=== PATIENT | male | born 1935 | race Caucasian/White ===

== ENCOUNTER 2022-04-17 20:42 | Inpatient (IN) | payer MEDICARE, SELFPAY ==
[2022-04-17] VITALS (7 sets, daily range): BP systolic 104–135; BP diastolic 59–89; PULSE 61–78; RESP 19–24; TEMP 37; O2SAT 93–97; BMI 25.6
--- NOTE | ~2022-04-17 | XR_ITS ---
EXAMINATION: XR chest 1V portable DATE: 04/19/2022 11:06 INDICATION: Respiratory distress. Shortness of breath. TECHNIQUE: frontal view of the chest was obtained. COMPARISON: None FINDINGS: Opacities at the left lower lung zone and to lesser degree along the right lung base. No pneumothorax or definitive pleural effusion. Borderline heart size accounting for AP technique. Median sternotomy wires and mediastinal surgical clips are seen, likely from prior coronary artery bypass grafting. Du al lead pacemaker seen with leads projecting over the expected locations of the right atrium and righ t ventricle. IMPRESSION: 1. Opacities in the bilateral lower lung zones, left greater than right which could represent atelect asis, pneumonia, mild pulmonary edema or some combination thereof. 2. Borderline heart size. Reviewed, dictated and finalized at location A. IMPRESSION: 1. Opacities in the bilateral lower lung zones, left greater than right which c ould represent atelectasis, pneumonia, mild pulmonary edema or some combination thereof. 2. Borderline heart size.
--- NOTE | 2022-04-17 21:19 | ADMGEN ---
This patient, Jas Hanson, was admitted to Intensive Care Unit-5 at 2030. Patient/family oriented to hospital policies and general routines including ID bracelet, bed and alarms, visiting hours, pain management, procedures, bathroom and other care routines, personal items, smoking policy, room service/diet, and visiting hours. Information on how to activate the Rapid Response Team has been discussed. Patient/Family are encouraged to report perceived risks to care and to ask questions if they do not understand what they are told or what they should do.
--- NOTE | 2022-04-17 21:22 | PM.IMHP ---
H&P: HPI History of Present Illness Date/Time: 04/17/22 21:22 Chief Complaint: Generalized weakness Narrative: 87-year-old male with a past medical history of type 2 diabetes mellitus, coronary artery disease status post CABG, paroxysmal atrial fibrillation, pacemaker/defibrillator who presented to the ER at [facility] due to generalized weakness. Source of information from outside ER records and patient report. The patient is a relatively good historian. The patient reported that he just did not feel well when he woke up and went into his kitchen. He was given rate to take his medications but he felt so bad he decided check his blood pressure 1st. When checked his blood pressures at home his systolic pressures were in the 190s. His told him that he just did not look well. He reports he had no preceding symptoms prior to this. Given that his blood pressure was so elevated they called EMS the patient was brought into the hospital. Just prior to EMS arrival with her home patient did have 1 episode of emesis of clear material. He denied any abdominal pain, chest pain, palpitations or shortness of breath. He denies any history of congestive heart failure. When EMS arrived at the home patient's systolic blood pressures were in the 100s/60s he was pale and diaphoretic. He was initially in sinus rhythm on arrival to the ER. Was given 3 L in fluid bolus. Shortly thereafter was started on Levophed. It appears the patient remained on Levophed for a couple of hours. The patient flipped in AFib RVR. In the course of treatment of his AFib he was given 5 mg IV Lopressor x2 in a 20-30 minute interval and was given 1 dose of IV Cardizem 10 mg about an hour and a half later. Sometime in that interval the patient's Levophed was also discontinued. With improvement in the patient's heart rate the patient's blood pressures normalized. Patient was taken off of Levophed prior to transfer. At the time patient arrived to [facility] she used the patient's blood pressures when the 130 systolic and was in a paced rhythm. The patient has a cervical collar placed due to a C2 fracture from August. He is supposed to follow-up in the next few weeks about possibly getting the cervical collar removed. Labs at the outside facility: White count 14.1 hemoglobin 11.8 platelet count [id number] with 80% neutrophils Lactic acid was 1.8 with repeat of 1.4 Magnesium was 1.6 patient received 2 g magnesium sulfate rider Influenza and COVID PCR was negative UA was unremarkable Troponin was lower limit of normal CMP sodium 126 potassium 4.1 chloride 93 CO2 25 BUN 14 creatinine 1 AST ALT and alk-phos oral low bilirubin was 0.[address] of the abdomen pelvis with contrast demonstrated mucosal thickening of the distal descending colon and proximal sigmoid colon multiple adjacent diverticuli may be due to diverticulitis versus focal colitis, minimal adjacent fatty infiltration without abscess. Proximal colon has moderate amount of stool without obstruction. Contracted urinary bladder with Jose catheter in place mild mucosal thickening of the urinary bladder may be consistent with cystitis, slightly distended gallbladder without stones without evidence of inflammation fatty infiltration of the liver without masses small hiatal hernia and infrarenal abdominal aortic aneurysm 2.[address] of the chest with contrast mild advancement of COPD, median sternotomy, extensive coronary artery calcifications, pacemaker leads in place, mild mucosal thickening of the esophagus may be due to reflux CT of the brain: Moderate small-vessel ischemic changes consistent with patient's age, 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 Blood cultures were obtained at the outside facility. Patient was transferred to our facility in the setting o
[2022-04-17] MEDS: SODIUM CHLORIDE 0.9% IV 1,000 ML 100 ML IV CONT (23:40)
[2022-04-18] VITALS (15 sets, daily range): BP systolic 113–165; BP diastolic 53–91; PULSE 60–80; RESP 17–21; TEMP 36.5–37.3; O2SAT 94–98
[2022-04-18 04:06] LABS: Basophils Absolute Auto 0.1 K/mm3 (0.0-0.1); Basophils Percent Auto 0.5 % (0.2-1.2); Eosinophils Percent Auto 0.3 % (0-4.4); Hematocrit 28.7 % (42.0-52.0); Hemoglobin 9.6 g/dL (14.0-18.0); Immature Granulocyte Absolute 0.04 K/mm3 (0.00-0.031); Immature Granulocyte Percent A 0.3 % (0-0.5); Lymphocytes Absolute Auto 1.75 K/mm3 (0.9-3.2); Lymphocytes Percent Auto 13.6 % (18.3-44.2); Mean Corpuscular HGB Conc 33.4 g/dl (32-36); Mean Corpuscular Hemoglobin 29.3 pg (26-34); Mean Corpuscular Volume 87.5 fl (80-100); Mean Platelet Volume 8.4 fl (7.4-10.4); Monocytes Absolute Auto 1.4 K/mm3 (0.1-0.6); Neutrophils Absolute Auto 9.6 K/mm3 (1.3-6.7); Neutrophils Percent Auto 74.3 % (45.5-73.1); Platelet Count Result 209 k/mm3 (150-375); Red Blood Count 3.28 M/mm3 (4.6-6.20); Red Cell Distribution Width 13.9 % (11.5-14.5); White Blood Count 12.9 K/mm3 (4.5-10.0)
[2022-04-18 04:31] LABS: Alanine Aminotransferase 8 U/L (6-50); Albumin Level 3.3 g/dL (3.5-5.1); Alkaline Phosphatase 33 U/L (38-126); Anion Gap 4 mmol/L (8-16); Aspartate Amino Transferase 19 U/L (17-59); Bilirubin,Total 0.5 mg/dL (0.2-1.3); Blood Urea Nitrogen 14 mg/dL (9-20); Calcium 8.2 mg/dL (8.4-10.2); Carbon Dioxide 25 mmol/L (22-30); Chloride 96 mmol/L (98-107); Estimated CRCL calculation 47 ml/min; Estimated Glomerular Filt Rate > 60; Glucose 123 mg/dL (65-110); Sodium 125 mmol/L (137-145)
[2022-04-18 04:36] LABS: Troponin I 0.147 ng/mL (0.000-0.034)
[2022-04-18 08:03] LABS: Glucose Point of Care 126 mg/dl (65-105)
[2022-04-18] MEDS: ENOXAPARIN 40 MG/0.4 ML SYRINGE SUB-Q (08:41)
[2022-04-18] MEDS: DOCUSATE SODIUM 100 MG CAPSULE PO ×2 (08:42→17:54)
[2022-04-18] MEDS: ASCORBIC ACID 500 MG TABLET 1000 MG PO (08:42)
[2022-04-18] MEDS: CHOLECALCIFEROL 1,000 UNITS TABLET 5000 UNITS PO (08:42)
[2022-04-18] MEDS: LORATADINE 10 MG TABLET PO (08:42)
[2022-04-18] MEDS: ISOSORBIDE MONONITRATE 30 MG TAB.ER.24H PO (08:43)
[2022-04-18] MEDS: SERTRALINE HCL 50 MG TABLET PO (08:43)
[2022-04-18] MEDS: CLOPIDOGREL BISULFATE 75 MG TABLET PO (08:43)
[2022-04-18] MEDS: CALCIUM CARBONATE (OSCAL) 500 MG TABLET PO (08:43)
[2022-04-18] MEDS: metFORMIN HCL XR 500 MG TAB.SR.24H PO ×2 (08:43→17:56)
[2022-04-18] MEDS: FINASTERIDE 5 MG TABLET PO (08:43)
[2022-04-18] MEDS: carvediloL 6.25 MG TABLET PO ×2 (08:43→19:54)
[2022-04-18] MEDS: FAMOTIDINE 20 MG TABLET PO ×2 (08:43→17:55)
[2022-04-18] MEDS: FLUTICASONE PROPIONATE 0.05% NA SPR 16 GM BTL (*BKC) 1 SPRAY NASAL (09:06)
--- NOTE | 2022-04-18 09:25 | PM.IMPN ---
Progress Note: A&P Assessment and Plan (1) Sepsis with hypotension: Code(s): A41.9 - Sepsis, unspecified organism; I95.9 - Hypotension, unspecified Status: Acute Assessment and Plan: Patient was found to be hypotensive at the outside hospital. He was on Levophed for few hours prior to transfer. His blood pressure did improve with IV fluids and controlling the heart rate. He was taken off Levophed prior to transfer. Patient's blood pressures been stable here. He did meet sepsis criteria on his original presentation. Etiology related to the diverticulitis. Sepsis symptoms resolving. Continue IV antibiotics. (2) Diverticulitis: Code(s): K57.92 - Diverticulitis of intestine, part unspecified, without perforation or abscess without bleeding Status: Acute Assessment and Plan: CT scan at the outside hospital shows mucosal thickening of the distal descending colon proximal sigmoid colon which may related to diverticulitis versus focal colitis. No abscess. No suggestion of pneumonia by the CT of the chest. Clinically patient is much improved. Continue IV antibiotics. (3) Elevated troponin: Code(s): R77.8 - Other specified abnormalities of plasma proteins Status: Acute Assessment and Plan: Troponin was lower limits of normal prior to admission. Troponin here 0.15. On repeat it is trending downward. Elevated troponin more likely related to his elevated heart rate and/or a hypotension. Will repeat EKG. Check echocardiogram. (4) Paroxysmal atrial fibrillation: Code(s): I48.0 - Paroxysmal atrial fibrillation Status: Acute Assessment and Plan: Patient has converted back to normal sinus rhythm. Continue Coreg. Continue tele. [id number] at least 6. Not on anticoagulation on admission felt related to his unsteady gait. Continue telemetry. Continue Coreg. (5) Anemia: Code(s): D64.9 - Anemia, unspecified Status: Acute Assessment and Plan: Hemoglobin 11.8 on admission at the outside hospital but has dropped to 9.6 today. No evidence acute blood loss. Probably related IV fluids. Will continue to follow. (6) Hyponatremia: Code(s): E87.1 - Hypo-osmolality and hyponatremia Status: Acute Assessment and Plan: Sodium was 126 at the outside hospital. This may be chronic for him. Sodium about the same today. Check urine studies. Check TSH and cortisol. Continue to follow. (7) Type 2 diabetes mellitus: Code(s): E11.9 - Type 2 diabetes mellitus without complications Status: Acute Assessment and Plan: The patient's blood glucose was reviewed on 04/18 Glucose remains well controlled. Continue AccuCheks covering with sliding scale. Hypoglycemia protocol available as needed. Continue current medications. (8) C2 cervical fracture: Onset Date: 08/2021 Code(s): S12.100A - Unspecified displaced fracture of second cervical vertebra, initial encounter for closed fracture Status: Acute Assessment and Plan: Patient has a history of C2 fracture in August of this year and currently wearing a cervical collar. This was to follow-up in the next few weeks with Neurosurgery about possibly getting the cervical collar removed. Start PT and OT. (9) Hypomagnesemia: Code(s): E83.42 - Hypomagnesemia Status: Acute Assessment and Plan: The patient received 2 g magnesium sulfate rider at the outside facility. Repeat magnesium level normal now. Continue to follow Plan Patient has been admitted inpatient status. Patient will require greater than 2 midnight hospital stay form evaluation and stabilization of multiple medical problems. Subjective Date/time seen: 04/18/22 09:25 Interval history: 87yo male with DM, CAD, pAFib and PM/defibrillator was transfer from outside hospital for diverticulitis and sepsis with hypotension. Patient feeling better toda
[2022-04-18 10:34] LABS: Troponin I 0.131 ng/mL (0.000-0.034)
[2022-04-18] MEDS: SODIUM CHLORIDE 0.9% IV 1,000 ML 70 ML IV CONT (10:39)
[2022-04-18 11:38] LABS: Creatinine Urine 108.4 mg/dL
[2022-04-18 11:43] LABS: Sodium Urine Random 91 meq/L
[2022-04-18 12:24] LABS: Glucose Point of Care 129 mg/dl (65-105)
[2022-04-18] MEDS: FLUTICASONE/UMECLIDIN/VILANTER 100-62.5-25 MCG ELLIPTA 1 PUFF INHALATION (16:52)
[2022-04-18 17:43] LABS: Glucose Point of Care 92 mg/dl (65-105)
[2022-04-18 19:39] LABS: Sodium 127 mmol/L (137-145)
[2022-04-18] MEDS: ACETAMINOPHEN 325 MG TABLET 650 MG PO (19:52)
[2022-04-18] MEDS: TAMSULOSIN HCL 0.4 MG CAPSULE PO (19:54)
[2022-04-18 19:59] LABS: Glucose Point of Care 136 mg/dl (65-105)
[2022-04-19] VITALS (16 sets, daily range): BP systolic 140–196; BP diastolic 71–96; PULSE 60–84; RESP 18–26; TEMP 36.3–36.8; O2SAT 85–99
--- NOTE | 2022-04-19 | ECHO_ITS ---
Patient Info Name: Jas Hanson Age: 87 years : 1935 Gender: Male Ht: 64 in Wt: 146 lbs BSA: 1.74 m2 HR: 65 bpm BP: 196 / 92 mmHg Exam Date: 04/19/2022 9:19 AM Exam Location: [facility] Patient Status: Inpatient Admit Date: 04/17/2022 Staff Ordering Physician: Yang Teran MD Inseam Trimmer: Sunil Rapp RDCS Attending Provider: Merissa Reddy DO Exam Type: CA echo doppler color flow Study Info Indications - elevated troponin Complete two-dimensional, color flow and Doppler transthoracic echocardiogram is performed. Summary 1. Complete two-dimensional, color flow and Doppler transthoracic echocardiogram is performed. 2. Borderline LV enlargement, mild LVH, normal LV systolic function, ejection fraction 65-70%, normal diastolic function. Linear artifact is seen in the right atrium and right ventricle. Mild mitral annular calcification, mild MR. Aortic valve is not well visualized, appears moderately calcified; maximum velocity 1.98 m/sec, mean gradient 9 mmHg. Trace TR, unable to assess RVSP due to inadequate TR jet. Consider further evaluation of aortic valve anatomy clinically appropriate. Left Ventricle Left ventricular chamber dimension is normal. Left ventricular systolic function is normal, estimated at 65-70%. There is mildly increased left ventricular wall thickness. The left ventricular diastolic function is normal. Right Ventricle Right ventricular chamber dimension is normal. Right ventricular systolic function is normal. Left Atria Left atrial chamber dimension is moderately enlarged. Right Atria Right atrial chamber dimension is normal. Linear artifact in the right atrium suggestive of catheter(s), pacemaker lead(s), or ICD lead(s). Aortic Valve The aortic valve is not well visualized. There is mild aortic valve stenosis with a peak velocity of 198 cm/s, mean gradient of 9 mmHg, and aortic valve area of 2.6 cm2. There is mild aortic valve regurgitation. There is moderate aortic valve calcification. Pulmonic Valve The pulmonic valve is not well visualized. Mitral Valve The mitral valve has normal leaflets. There is mild mitral valve regurgitation. There is mild mitral valve calcification. Tricuspid Valve The tricuspid valve leaflets are normal. There is trace tricuspid valve regurgitation. Inferior Vena Cava Dilated inferior vena cava with no collapse upon inspiration consistent with elevated right atrial pressure, 15 mmHg. Aorta The aortic root size at the sinus of Valsalva is not well visualized. Left Ventricular Outflow Tract Name Value Normal LVOT 2D LVOT Diameter 2.0 cm LVOT Doppler LVOT Peak Gradient 8 mmHg LVOT Mean Gradient 6 mmHg LVOT VTI 34 cm LVOT VTI/AV VTI Ratio 0.8 LVOT Stroke Volume 111 ml LVOT CO 7.3 l/min LVOT CI 4.2 l/min/m2 Mitral Valve Name
[2022-04-19] MEDS: SODIUM CHLORIDE 0.9% IV 1,000 ML 70 ML IV CONT (00:15)
[2022-04-19 04:31] LABS: Basophils Absolute Auto 0.1 K/mm3 (0.0-0.1); Basophils Percent Auto 0.5 % (0.2-1.2); Eosinophils Absolute Auto 0.2 K/mm3 (0-0.3); Eosinophils Percent Auto 2.4 % (0-4.4); Hematocrit 31.6 % (42.0-52.0); Hemoglobin 10.2 g/dL (14.0-18.0); Immature Granulocyte Absolute 0.04 K/mm3 (0.00-0.031); Immature Granulocyte Percent A 0.4 % (0-0.5); Lymphocytes Absolute Auto 1.87 K/mm3 (0.9-3.2); Lymphocytes Percent Auto 19.4 % (18.3-44.2); Mean Corpuscular HGB Conc 32.3 g/dl (32-36); Mean Corpuscular Volume 89.8 fl (80-100); Mean Platelet Volume 8.5 fl (7.4-10.4); Monocytes Absolute Auto 0.9 K/mm3 (0.1-0.6); Monocytes Percent Auto 9.5 % (2.6-8.5); Neutrophils Absolute Auto 6.5 K/mm3 (1.3-6.7); Neutrophils Percent Auto 67.8 % (45.5-73.1); Platelet Count Result 216 k/mm3 (150-375); Red Blood Count 3.52 M/mm3 (4.6-6.20); Red Cell Distribution Width 14.2 % (11.5-14.5); White Blood Count 9.7 K/mm3 (4.5-10.0)
[2022-04-19 04:41] LABS: Albumin Level 3.6 g/dL (3.5-5.1); Anion Gap 11 mmol/L (8-16); Blood Urea Nitrogen 10 mg/dL (9-20); Calcium 7.7 mg/dL (8.4-10.2); Carbon Dioxide 26 mmol/L (22-30); Chloride 92 mmol/L (98-107); Estimated CRCL calculation 54 ml/min; Estimated Glomerular Filt Rate > 60; Glucose 110 mg/dL (65-110); Magnesium 1.7 mg/dL (1.6-2.3); Phosphorus 2.6 mg/dL (2.5-4.5); Sodium 129 mmol/L (137-145)
[2022-04-19 04:43] LABS: Hemoglobin A1C 6.2 % (<5.7)
[2022-04-19 06:48] LABS: Free T4 Free Thyroxine Reflex 1.23 ng/dL (0.78-2.19)
--- NOTE | 2022-04-19 08:00 | ECG_ITS ---
Measurements Intervals [place] Rate: 71 P: 118 AK: 152 QRS: 46 QRSD: 104 T: 147 QT: 362 QTc: 394 Interpretive Statements ELECTRONIC ATRIAL PACEMAKER FREQUENT ATRIAL PREMATURE COMPLEXES BORDERLINE ST-T WAVE ABNORMALITY- DIFFUSE LEADS BASELINE ARTIFACT- II, III, AVR, AVL, AVF, V1-V6 BORDERLINE ECG NO PREVIOUS ECG AVAILABLE FOR COMPARISON Electronically Signed On 04-19-2022 11:23:44 CDT by Loy Saezn D.O.
[2022-04-19] MEDS: FLUTICASONE/UMECLIDIN/VILANTER 100-62.5-25 MCG ELLIPTA 1 PUFF INHALATION (08:39)
[2022-04-19] MEDS: ASCORBIC ACID 500 MG TABLET 1000 MG PO (09:02)
[2022-04-19] MEDS: CALCIUM CARBONATE (OSCAL) 500 MG TABLET PO (09:02)
[2022-04-19] MEDS: carvediloL 6.25 MG TABLET PO ×2 (09:02→20:20)
[2022-04-19] MEDS: metFORMIN HCL XR 500 MG TAB.SR.24H PO ×2 (09:03→17:09)
[2022-04-19] MEDS: FAMOTIDINE 20 MG TABLET PO ×2 (09:03→17:08)
[2022-04-19] MEDS: LORATADINE 10 MG TABLET PO (09:03)
[2022-04-19] MEDS: CLOPIDOGREL BISULFATE 75 MG TABLET PO (09:03)
[2022-04-19] MEDS: CHOLECALCIFEROL 1,000 UNITS TABLET 5000 UNITS PO (09:03)
[2022-04-19] MEDS: SERTRALINE HCL 50 MG TABLET PO (09:03)
[2022-04-19] MEDS: DOCUSATE SODIUM 100 MG CAPSULE PO ×2 (09:03→17:08)
[2022-04-19] MEDS: FINASTERIDE 5 MG TABLET PO (09:03)
[2022-04-19] MEDS: ENOXAPARIN 40 MG/0.4 ML SYRINGE SUB-Q (09:03)
[2022-04-19] MEDS: ISOSORBIDE MONONITRATE 30 MG TAB.ER.24H PO (09:03)
[2022-04-19] MEDS: FLUTICASONE PROPIONATE 0.05% NA SPR 16 GM BTL (*BKC) 1 SPRAY NASAL (09:04)
--- NOTE | 2022-04-19 09:21 | PCOTNOTE ---
Attempted OT evaluation. Patient getting an echo at this time. Will continue to attempt.
[2022-04-19 09:51] LABS: Glucose Point of Care 112 mg/dl (65-105)
[2022-04-19 12:57] LABS: Glucose Point of Care 141 mg/dl (65-105)
[2022-04-19] MEDS: FUROSEMIDE INJ 40 MG/4 ML VIAL 20 MG IV PUSH (13:19)
--- NOTE | 2022-04-19 14:00 | PM.IMPN ---
Progress Note: A&P Assessment and Plan (1) Sepsis with hypotension: Code(s): A41.9 - Sepsis, unspecified organism; I95.9 - Hypotension, unspecified Status: Acute Assessment and Plan: Patient was found to be hypotensive at the outside hospital. He was on Levophed for few hours prior to transfer. His blood pressure did improve with IV fluids and controlling the heart rate. He was taken off Levophed prior to transfer. Patient's blood pressures have been stable here. He did meet sepsis criteria with HoTN on his original presentation. Etiology related to the diverticulitis. Sepsis symptoms resolving. Continue IV antibiotics. Call OSH for culture results. The increasing SOB so CXR ordered showing bilateral LL opacities. Possibly from pulmonary edema related to IV fluid resuscitation. lasix 20mg IV x1 (he is lasix naive). Wean o2 as toelrated. (2) Diverticulitis: Code(s): K57.92 - Diverticulitis of intestine, part unspecified, without perforation or abscess without bleeding Status: Acute Assessment and Plan: CT scan at the outside hospital shows mucosal thickening of the distal descending colon proximal sigmoid colon which may related to diverticulitis versus focal colitis. No abscess. No suggestion of pneumonia by the CT of the chest. Clinically patient is much improved. Continue IV antibiotics. Remove Jose. Possibly discharge tomorrow if he continues to improve. (3) Elevated troponin: Code(s): R77.8 - Other specified abnormalities of plasma proteins Status: Acute Assessment and Plan: Troponin was lower limits of normal prior to admission. Troponin here 0.15. On repeat it is trending downward. Elevated troponin more likely related to his elevated heart rate and/or a hypotension. Repeat EKG noted. Echo showing EF 65-70% with normal diastolic dysfunction. (4) Paroxysmal atrial fibrillation: Code(s): I48.0 - Paroxysmal atrial fibrillation Status: Acute Assessment and Plan: Patient has converted back to normal sinus rhythm. Continue Coreg. Continue tele. [id number] at least 6. Not on anticoagulation on admission felt related to his unsteady gait. Continue telemetry. Continue Coreg. (5) Anemia: Code(s): D64.9 - Anemia, unspecified Status: Acute Assessment and Plan: Hemoglobin 11.8 on admission at the outside hospital but dropped to 9.6. No evidence acute blood loss. Probably related IV fluids. Repeat Hgb 10.2 today. Will continue to follow. (6) Hyponatremia: Code(s): E87.1 - Hypo-osmolality and hyponatremia Status: Acute Assessment and Plan: Sodium was 126 at the outside hospital. This may be chronic for him. Urine Sodium 91. TSH and Cortisol normal. Fluid restriction started. Sodium better today at 129 about the same today. Continue to follow. (7) Type 2 diabetes mellitus: Code(s): E11.9 - Type 2 diabetes mellitus without complications Status: Acute Assessment and Plan: A1c 6.2. The patient's blood glucose was reviewed on 04/19 Glucose remains well controlled. Continue AccuCheks covering with sliding scale. Hypoglycemia protocol available as needed. Continue current medications. (8) C2 cervical fracture: Onset Date: 08/2021 Code(s): S12.100A - Unspecified displaced fracture of second cervical vertebra, initial encounter for closed fracture Status: Acute Assessment and Plan: Patient has a history of C2 fracture in August of this year and currently wearing a cervical collar. This was to follow-up in the next few weeks with Neurosurgery about possibly getting the cervical collar removed. He is doing well with PT and OT. (9) Hypomagnesemia: Code(s): E83.42 - Hypomagnesemia Status: Acute Assessment and Plan: The patient received 2 g magnesium sulfate rider at the outside facility. Repeat magnesium level normal now. Continue
[2022-04-19] MEDS: ACETAMINOPHEN 325 MG TABLET 650 MG PO ×2 (14:42→20:46)
[2022-04-19] MEDS: polyethylene glycoL 3350 17 GM POWD.PACK PO (17:07)
[2022-04-19 17:28] LABS: Glucose Point of Care 110 mg/dl (65-105)
--- NOTE | 2022-04-19 18:40 | PC.NURSE ---
This patient, Jas Hanson, was transferred to [[id number]] on 04/19/22 at 1840. Personal belongings sent with patient. Report given to [Suzie GATES]. Appropriate documentation sent with patient.
[2022-04-19] MEDS: TAMSULOSIN HCL 0.4 MG CAPSULE PO (20:20)
[2022-04-19 20:50] LABS: Glucose Point of Care 121 mg/dl (65-105)
[2022-04-20] VITALS (7 sets, daily range): BP systolic 146–158; BP diastolic 57–72; PULSE 60–83; RESP 20; TEMP 36.6; O2SAT 97–98
[2022-04-20 06:30] LABS: Anion Gap 13 mmol/L (8-16); Blood Urea Nitrogen 7 mg/dL (9-20); Calcium 8.1 mg/dL (8.4-10.2); Carbon Dioxide 27 mmol/L (22-30); Chloride 90 mmol/L (98-107); Estimated CRCL calculation 47 ml/min; Estimated Glomerular Filt Rate > 60; Glucose 110 mg/dL (65-110); Magnesium 1.7 mg/dL (1.6-2.3); Potassium 3.2 mmol/L (3.4-5.0); Sodium 130 mmol/L (137-145)
[2022-04-20] MEDS: ENOXAPARIN 40 MG/0.4 ML SYRINGE SUB-Q (08:45)
[2022-04-20] MEDS: FLUTICASONE PROPIONATE 0.05% NA SPR 16 GM BTL (*BKC) 1 SPRAY NASAL (08:45)
[2022-04-20] MEDS: CHOLECALCIFEROL 1,000 UNITS TABLET 5000 UNITS PO (08:46)
[2022-04-20] MEDS: ASCORBIC ACID 500 MG TABLET 1000 MG PO (08:46)
[2022-04-20] MEDS: CLOPIDOGREL BISULFATE 75 MG TABLET PO (08:46)
[2022-04-20] MEDS: metFORMIN HCL XR 500 MG TAB.SR.24H PO (08:46)
[2022-04-20] MEDS: DOCUSATE SODIUM 100 MG CAPSULE PO (08:46)
[2022-04-20] MEDS: carvediloL 6.25 MG TABLET PO (08:47)
[2022-04-20] MEDS: FAMOTIDINE 20 MG TABLET PO (08:47)
[2022-04-20] MEDS: FINASTERIDE 5 MG TABLET PO (08:48)
[2022-04-20] MEDS: ISOSORBIDE MONONITRATE 30 MG TAB.ER.24H PO (08:48)
[2022-04-20] MEDS: LORATADINE 10 MG TABLET PO (08:48)
[2022-04-20] MEDS: CALCIUM CARBONATE (OSCAL) 500 MG TABLET PO (08:48)
[2022-04-20] MEDS: SERTRALINE HCL 50 MG TABLET PO (08:48)
[2022-04-20 08:49] LABS: Glucose Point of Care 100 mg/dl (65-105)
[2022-04-20] MEDS: FLUTICASONE/UMECLIDIN/VILANTER 100-62.5-25 MCG ELLIPTA 1 PUFF INHALATION (09:24)
--- NOTE | 2022-04-20 10:43 | PM.DS ---
DS: Admitting Diagnosis Discharge Date 04/20/2022 Admitting Diagnosis Generalized weakness DS: Discharge Diagnosis Discharge Diagnosis (1) Sepsis with hypotension: Code(s): A41.9 - Sepsis, unspecified organism; I95.9 - Hypotension, unspecified Status: Acute (2) Diverticulitis: Code(s): K57.92 - Diverticulitis of intestine, part unspecified, without perforation or abscess without bleeding Status: Acute (3) Elevated troponin: Code(s): R77.8 - Other specified abnormalities of plasma proteins Status: Acute (4) Paroxysmal atrial fibrillation: Code(s): I48.0 - Paroxysmal atrial fibrillation Status: Acute (5) Anemia: Code(s): D64.9 - Anemia, unspecified Status: Acute (6) Hyponatremia: Code(s): E87.1 - Hypo-osmolality and hyponatremia Status: Acute (7) Type 2 diabetes mellitus: Code(s): E11.9 - Type 2 diabetes mellitus without complications Status: Acute (8) C2 cervical fracture: Onset Date: 08/2021 Code(s): S12.100A - Unspecified displaced fracture of second cervical vertebra, initial encounter for closed fracture Status: Acute (9) Hypomagnesemia: Code(s): E83.42 - Hypomagnesemia Status: Acute DS: Summary Hospital Course Hospital Course: 87-year-old male with a past medical history of type 2 diabetes mellitus, coronary artery disease status post CABG, paroxysmal atrial fibrillation, pacemaker/defibrillator who presented to the ER at [facility] due to generalized weakness.? Source of information from outside ER records and patient report.? The patient is a relatively good historian.? The patient reported that he just did not feel well when he woke up and went into his kitchen.? He was given rate to take his medications but he felt so bad he decided check his blood pressure 1st.? When checked his blood pressures at home his systolic pressures were in the 190s.? His told him that he just did not look well.? He reports he had no preceding symptoms prior to this.? Given that his blood pressure was so elevated they called EMS the patient was brought into the hospital.? Just prior to EMS arrival with her home patient did have 1 episode of emesis of clear material.? He denied any abdominal pain, chest pain, palpitations or shortness of breath.? He denies any history of congestive heart failure.? When EMS arrived at the home patient's systolic blood pressures were in the 100s/60s he was pale and diaphoretic.? He was initially in sinus rhythm on arrival to the ER.? Was given 3 L in fluid bolus.? Shortly thereafter was started on Levophed.? It appears the patient remained on Levophed for a couple of hours.? The patient flipped in AFib RVR.? In the course of treatment of his AFib he was given 5 mg IV Lopressor x2 in a 20-30 minute interval and was given 1 dose of IV Cardizem 10 mg about an hour and a half later.? Sometime in that interval the patient's Levophed was also discontinued.? With improvement in the patient's heart rate the patient's blood pressures normalized.? Patient was taken off of Levophed prior to transfer.? At the time patient arrived to [facility] she used the patient's blood pressures when the 130 systolic and was in a paced rhythm.? The patient has a cervical collar placed due to a C2 fracture from August.? He is supposed to follow-up in the next few weeks about possibly getting the cervical collar removed. Labs at the outside facility: White count 14.1 hemoglobin 11.8 platelet count [id number] with 80% neutrophils Lactic acid was 1.8 with repeat of 1.4 Magnesium was 1.6 patient received 2 g magnesium sulfate rider Influenza and COVID PCR was negative UA was unremarkable Troponin was lower limit of normal CMP sodium 126 potassium 4.1 chloride 93 CO2 25 BUN 14 creatinine 1 AST ALT and alk-phos oral low bilirubin was 0.[address] of the abdomen pelvis with contrast demonstrated mucosal thickening of the dist
[2022-04-20] MEDS: POTASSIUM CHLORIDE 20 MEQ TABLET 40 MEQ PO (10:45)
[2022-04-20 12:23] LABS: Glucose Point of Care 100 mg/dl (65-105)
--- NOTE | 2022-04-20 13:27 | PC.NURSE ---
On 04/20/22, the student, [Jael Matthews], provided care and completed [email or web address] documentation on this patient. I have reviewed the student's documentation and agree with the findings.
== END 2022-04-20 15:05 | disposition home or self-care (01) | DRG 392 ==
LOC: ANHICU 04-19 11:43 → ANH2MED 04-19 18:33
PROVIDERS: Internal Medicine; Student in an Organized Health Care Education/Training Program; Admitting Provider Internal Medicine; Visit Provider Internal Medicine
DX: K57.32 Diverticulitis of large intestine without perforation or abscess without bleeding (principal); E87.1 Hypo-osmolality and hyponatremia; J81.1 Chronic pulmonary edema; D64.9 Anemia, unspecified; E11.9 Type 2 diabetes mellitus without complications; E55.9 Vitamin D deficiency, unspecified; E78.5 Hyperlipidemia, unspecified; F32.A Depression, unspecified; I48.0 Paroxysmal atrial fibrillation; I25.10 Atherosclerotic heart disease of native coronary artery without angina pectoris; J44.9 Chronic obstructive pulmonary disease, unspecified; J30.9 Allergic rhinitis, unspecified; K21.9 Gastro-esophageal reflux disease without esophagitis; N40.0 Benign prostatic hyperplasia without lower urinary tract symptoms; R77.8 Other specified abnormalities of plasma proteins; R26.9 Unspecified abnormalities of gait and mobility; S12.100D Unspecified displaced fracture of second cervical vertebra, subsequent encounter for fracture with routine healing; X58.XXXD Exposure to other specified factors, subsequent encounter; Z95.5 Presence of coronary angioplasty implant and graft; Z86.73 Personal history of transient ischemic attack (TIA), and cerebral infarction without residual deficits; Z95.1 Presence of aortocoronary bypass graft; Z95.810 Presence of automatic (implantable) cardiac defibrillator; Z98.41 Cataract extraction status, right eye; Z98.42 Cataract extraction status, left eye; Z96.1 Presence of intraocular lens; Z87.891 Personal history of nicotine dependence; Z79.02 Long term (current) use of antithrombotics/antiplatelets; Z79.84 Long term (current) use of oral hypoglycemic drugs; Z91.81 History of falling
CPT/HCPCS: 36415; 71045; 80048; 80053; 80069; 82533; 82570; 82948; 83036; 83735; 84295; 84300; 84439; 84443; 84480; 84484; 85025; 93005; 93306; 94640; 96361; 96365; 96366; 96372; 97161; 97165; A9270; G0378; J1650; J1940; J2543; J7030

== ENCOUNTER 2023-05-31 18:42 | Emergency (ER) | payer MEDICARE, SELFPAY ==
--- NOTE | ~2023-05-31 | CT_ITS ---
CT of the Abdomen and Pelvis: Indication: Rectal bleeding, anemia Technique: 2.5 mm axial scans were obtained through the abdomen and pelvis following intravenous adm inistration of 100 cc of Omnipaque 350. Dose reduction technique was used on this scan by utilizing a utomated exposure control and iterative reconstruction technique. The dose-length product (DLP) was 2 09.89 mGy-cm. Findings: Scans through the lung bases demonstrate bibasilar chronic interstitial disease. The liver, spleen, pancreas, gallbladder, adrenals and kidneys are within normal limits. There are ex tensive atherosclerotic calcifications of the aorta. There is a probable type B dissection involving the infrarenal abdominal aorta. No lymphadenopathy. No bowel obstruction or bowel wall thickening. There is no evidence to suggest acute appendicitis. Images through the pelvis were performed. Urinary bladder unremarkable. No pelvic mass seen. Small fa t-containing left inguinal hernia noted. No ascites. 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 No etiology for hemorrhage/anemia clearly identified. Reviewed, dictated and finalized at [facility]. 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 No etiology for hemorrhage/anemia clearly identified.
[2023-05-31 19:00] VITALS: BP 137/92; PULSE 79; RESP 18; TEMP 36.6; O2SAT 98
[2023-05-31 22:37] VITALS: BP 170/74; PULSE 76; RESP 15; O2SAT 100
[2023-06-01] VITALS (21 sets, daily range): BP systolic 155–181; BP diastolic 64–98; PULSE 62–88; RESP 15–16; TEMP 36.4; O2SAT 92–100
[2023-06-01 00:24] LABS: Alanine Aminotransferase 11 U/L (6-50); Alkaline Phosphatase 31 U/L (38-126); Anion Gap 6 mmol/L (8-16); Aspartate Amino Transferase 22 U/L (17-59); Bilirubin,Total 0.4 mg/dL (0.2-1.3); Blood Urea Nitrogen 13 mg/dL (9-20); Calcium 8.7 mg/dL (8.4-10.2); Carbon Dioxide 26 mmol/L (22-30); Chloride 97 mmol/L (98-107); Estimated Glomerular Filt Rate > 60; Glucose 100 mg/dL (65-110); Potassium 4.2 mmol/L (3.4-5.0); Sodium 129 mmol/L (137-145)
[2023-06-01 00:29] LABS: Basophils Absolute Auto 0.1 K/mm3 (0.0-0.1); Basophils Percent Auto 0.9 % (0.2-1.2); Eosinophils Absolute Auto 0.2 K/mm3 (0-0.3); Hematocrit 23.1 % (42.0-52.0); Immature Granulocyte Absolute 0.02 K/mm3 (0.00-0.031); Immature Granulocyte Percent A 0.3 % (0-0.5); Lymphocytes Absolute Auto 2.23 K/mm3 (0.9-3.2); Lymphocytes Percent Auto 28.1 % (18.3-44.2); Mean Corpuscular HGB Conc 28.1 g/dl (32-36); Mean Corpuscular Hemoglobin 21.5 pg (26-34); Mean Corpuscular Volume 76.2 fl (80-100); Mean Platelet Volume 8.9 fl (7.4-10.4); Monocytes Absolute Auto 0.8 K/mm3 (0.1-0.6); Monocytes Percent Auto 9.7 % (2.6-8.5); Neutrophils Absolute Auto 4.6 K/mm3 (1.3-6.7); Platelet Count Result 255 k/mm3 (150-375); Red Blood Count 3.03 M/mm3 (4.6-6.20); Red Cell Distribution Width 18.1 % (11.5-14.5)
[2023-06-01 00:32] LABS: Hemoglobin 6.5 g/dL (14.0-18.0); INR 2.2; Partial Thromboplastin Time 37.9 SECONDS (22.3-36.8); Prothrombin Time 26.5 Seconds (11.1-14.7)
[2023-06-01 01:00] LABS: Hypochromasia 1+ (NORMAL); Platelet Estimate Adequate (Adequate); Schistocytes None Seen (NORMAL)
[2023-06-01 02:31] LABS: Hematocrit 22.5 % (42.0-52.0)
[2023-06-01 02:39] LABS: Hemoglobin 6.3 g/dL (14.0-18.0)
[2023-06-01] MEDS: SODIUM CHLORIDE 0.9% IV 250 ML 30 ML IV CONT (03:26)
--- NOTE | 2023-06-01 05:30 | ED.RECABL ---
HPI - Recheck/Abnormal Lab/Rx General Chief Complaint: Recheck/Abnormal Lab/Rx Stated Complaint: hgb low Time Seen by Provider: 05/31/23 23:12 Source: patient and family (, son) History of Present Illness HPI narrative: Patient saw PCP today (Robyn Mullins) and was noted to have Hgb of 7.4. It is reported he had + heme on rectal exam. Patient denies dizziness, lightheadedness. No syncope, CP. No PENG though he does have RUDD (sometimes has to stop when walking 100ft to his work shed). No hematuria/hematemesis/hemoptysis. Denies frankly bloody bowel movements but does have to strain to stool. Takes fiber and stool softeners for constipation. Denies diarrhea. Never had a colonoscopy. Not on iron supplemmentation. No abdominal pain. Only required a blood tranfusion once before, during open heart surgery in 2008 (performed in [place] with Dr Hunt). Hx diverticulitis. Patient is on Xarelto and 81mg ASA (the former not listed in med lsit below). Related Data Home Medications Medication Instructions Recorded Confirmed ascorbic acid (vitamin C) 1,000 mg 1 g PO DAILY 04/17/22 04/17/22 tablet calcium carbonate 600 mg calcium 600 mg PO DAILY 04/17/22 04/17/22 (1,500 mg) tablet (Calcium) carvedilol 6.25 mg tablet 6.25 mg PO BID 04/17/22 04/17/22 cholecalciferol (vitamin D3) 125 125 mcg PO DAILY 04/17/22 04/17/22 mcg (5,000 unit) tablet (Vitamin D3) clopidogrel 75 mg tablet 75 mg PO DAILY 04/17/22 04/17/22 docusate sodium 100 mg capsule 100 mg PO BID 04/17/22 04/17/22 famotidine 20 mg tablet 20 mg PO BID 04/17/22 04/17/22 finasteride 5 mg tablet 5 mg PO DAILY 04/17/22 04/17/22 fluticasone fur. 100 mcg-umeclid 1 inh inhalation DAILY 04/17/22 04/17/22 62.5 mcg-vilant 25 mcg inhalat.powder (Trelegy Ellipta) fluticasone propionate 50 1 spray intranasal DAILY 04/17/22 04/17/22 mcg/actuation nasal spray,suspension isosorbide mononitrate 30 mg 30 mg PO DAILY 04/17/22 04/17/22 tablet,extended release 24 hr loratadine 10 mg tablet 10 mg PO DAILY 04/17/22 04/17/22 metformin 500 mg tablet,extended 500 mg PO BID 04/17/22 04/17/22 release 24 hr sertraline 50 mg tablet 50 mg PO DAILY 04/17/22 04/17/22 tamsulosin 0.4 mg capsule 0.4 mg PO HS 04/17/22 04/17/22 Allergies Allergy/AdvReac Type Severity Reaction Status Date / Time amiodarone Allergy Unknown Verified 04/17/22 21:17 atorvastatin Allergy Unknown Verified 04/17/22 21:17 lisinopril Allergy Unknown Verified 04/17/22 21:17 valsartan Allergy Unknown Verified 04/17/22 21:17 [facility] Past Medical History Medical History (Updated 06/02/23 @ 00:00 by Cierra Emerson) Allergic rhinitis BPH (benign prostatic hyperplasia) C2 cervical fracture (08/2021) Cervical collar in place COPD (chronic obstructive pulmonary disease) Coronary artery disease CVA (cerebral vascular accident) Patient denies history of stroke but CT from outside facility demonstrated evidence of small old lacunar infarct in the posterior and inferior limb of the right internal capsule Depression GERD (gastroesophageal reflux disease) Hyperlipidemia Paroxysmal atrial fibrillation Type 2 diabetes mellitus Vitamin D deficiency Surgical History Surgical History (Updated 04/18/22 @ 02:46 by Georgiana Nielson DO) Artificial cardiac pacemaker (~2010) History of cardiac catheterization 2008, 2009, 2010, and 2015 History of four vessel coronary artery bypass graft (~2008) Performed by Dr. Hunt in [facility] History of heart artery stent (~2009) Status post cataract extraction of both eyes with insertion of intraocular lens Family History Family History (Updated 04/18/22 @ 02:45 by Georgiana Nielson DO) Son Malignant melanoma, Onset Age: 38 Social History Social History (Updated 04/18/22 @ 02:44 by Georgiana Nielson DO) Smoking packs per day: 2 Smoking cigarettes per day: 40.0 Years smoked: 58 Smoking pack-years: 116.00 Smoking status: Former smoker [place]
== END 2023-06-01 06:57 | disposition home or self-care (01) ==
PROVIDERS: Emergency Provider Student in an Organized Health Care Education/Training Program; PCP Nurse Practitioner
DX: D64.9 Anemia, unspecified (principal); K57.90 Diverticulosis of intestine, part unspecified, without perforation or abscess without bleeding; J44.9 Chronic obstructive pulmonary disease, unspecified; E11.9 Type 2 diabetes mellitus without complications; I48.0 Paroxysmal atrial fibrillation; I25.10 Atherosclerotic heart disease of native coronary artery without angina pectoris; E55.9 Vitamin D deficiency, unspecified; N40.0 Benign prostatic hyperplasia without lower urinary tract symptoms; E78.5 Hyperlipidemia, unspecified; K21.9 Gastro-esophageal reflux disease without esophagitis; Z95.0 Presence of cardiac pacemaker; Z95.1 Presence of aortocoronary bypass graft; Z95.5 Presence of coronary angioplasty implant and graft; Z96.1 Presence of intraocular lens; Z86.73 Personal history of transient ischemic attack (TIA), and cerebral infarction without residual deficits; Z87.891 Personal history of nicotine dependence; Z98.42 Cataract extraction status, left eye; Z98.41 Cataract extraction status, right eye; I71.02 Dissection of abdominal aorta; Z79.84 Long term (current) use of oral hypoglycemic drugs
CPT/HCPCS: 36415; 36430; 74177; 80053; 85014; 85018; 85025; 85610; 85730; 86850; 86900; 86901; 86923; 96360; 96361; 99285; J7050; P9016; Q9967